=== PATIENT | male | born 1935 | race Hispanic/Latino ===

== ENCOUNTER 2020-05-03 10:58 | Inpatient (IN) | payer MEDICARE ==
[~2020-05-03] VITALS: Ht 172.7 cm; Wt 90.7 kg
[2020-05-03 11:45] LABS: BASOPHILS % (AUTO) 0.3 % (0.0-5.0); HEMATOCRIT 53.8 % (42-54); LYMPHOCYTES % (AUTO) 12.5 % (21.0-51.0); MEAN CORPUSCULAR HEMOGLOBIN 32.2 pg (27.0-33.0); MEAN CORPUSCULAR HGB CONC 34.8 g/dL (32.0-36.0); MEAN CORPUSCULAR VOLUME 92.6 fL (79-99); MONOCYTES % (AUTO) 4.6 % (3.0-13.0); NEUTROPHILS % (AUTO) 80.8 % (40.0-77.0); PLATELET COUNT (AUTO) 143 K/uL (130-400); RED BLOOD CELL COUNT(AUTO) 5.81 MIL/uL (4.50-6.20); RED CELL DISTRIBUTION WIDTH 13.2 % (11.0-15.5); WHITE BLOOD COUNT (AUTO) 3.3 K/uL (4.8-10.8)
[2020-05-03 11:55] LABS: CREATININE 1.1 mg/dL (0.5-1.5); POTASSIUM 4.1 mmol/L (3.5-5.1)
[2020-05-03 11:58] LABS: INR 0.91 (0.85-1.15); PROTHROMBIN TIME 9.9 SEC (9.6-11.6)
[2020-05-03 12:05] LABS: ALBUMIN 3.7 g/dL (3.5-5.0); BILIRUBIN,TOTAL 0.6 mg/dL (0.2-1.0); TOTAL PROTEIN, SERUM 7.9 g/dL (6.0-8.3)
[2020-05-03 12:56] LABS: ABG BASE EXCESS -5.5 mmol/L (-2.0-3.0); ABG HCO3 17.2 mmol/L (21.0-28.0); ABG OXYGEN SATURATION 88.8 % (95.0-99.0); ABG PCO2 27 mmHg (35-48)
[2020-05-03] MEDS ORDERED: CEFTRIAXONE SODIUM 1 GM ONE (14:23)
[2020-05-03] MEDS ORDERED: SODIUM CHLORIDE 0.9% 50 ML IV ONE (14:24)
[2020-05-03] MEDS ORDERED: ACETAMINOPHEN 325 MG TAB PO PRN (15:00)
[2020-05-03] MEDS ORDERED: ONDANSETRON HCL 4 MG/2 ML VIAL IV PRN (15:00)
[2020-05-03] MEDS ORDERED: LACTULOSE 20 GM/30 ML UDCUP PO PRN (15:00)
[2020-05-03] MEDS: CEFTRIAXONE SODIUM 1 GM IVP SCH (15:00)
[2020-05-03] MEDS ORDERED: DOXYCYCLINE 100MG+NS 250ML IV SCH (15:00)
[2020-05-03] MEDS ORDERED: ERGOCALCIFEROL (VITAMIN D2) 50,000 UNIT CAPSULE PO ONE (15:00)
[2020-05-03] MEDS ORDERED: HYDRALAZINE HCL 20 MG/ML VIAL IV PRN (15:45)
[2020-05-03] MEDS ORDERED: PHARMACY COMMUNICATION***REMDESIVIR ORDER MISC SCH (15:45)
[2020-05-03] MEDS ORDERED: ALBUTEROL INHALER 90MCG/INH IH PRN (15:45)
[2020-05-03] MEDS: DOXYCYCLINE 100MG+NS 250ML 250 ML IV SCH (16:00)
[2020-05-03] MEDS ORDERED: METHYLPREDNISOLONE SOD SUCC 40MG/ML 1ML IVP SCH (16:00)
[2020-05-03] MEDS ORDERED: METHYLPREDNISOLONE SOD SUCC 40MG/ML 1ML ONE (16:15)
[2020-05-03] MEDS ORDERED: DOXYCYCLINE HYCLATE 100 MG TABLET PO ONE (16:16)
[2020-05-03] MEDS ORDERED: ERGOCALCIFEROL (VITAMIN D2) 50,000 UNIT CAPSULE ONE (16:16)
[2020-05-03] MEDS ORDERED: DOXYCYCLINE 100MG+NS 250ML 250 ML IV ONE (16:20)
[2020-05-03] MEDS ORDERED: ALBUTEROL INHALER 90MCG/INH IH ONE (17:49)
[2020-05-03] MEDS ORDERED: FAMOTIDINE 20MG TAB 20 MG TAB ONE (20:26)
[2020-05-03] MEDS ORDERED: ASCORBIC ACID 500 MG TAB ONE (20:26)
[2020-05-03] MEDS ORDERED: ACETYLCYSTEINE 600 MG CAPSULE ONE (20:26)
[2020-05-03] MEDS ORDERED: ENOXAPARIN SODIUM 40 MG/0.4 ML SYRINGE SQ ONE (20:27)
[2020-05-03] MEDS ORDERED: ZINC SULFATE 220 CAPSULE ONE (20:27)
[2020-05-03] MEDS ORDERED: FAMOTIDINE 20MG TAB 20 MG TAB PO SCH (21:00)
[2020-05-03] MEDS: ACETYLCYSTEINE 600 MG CAPSULE PO SCH (21:00)
[2020-05-04] MEDS ORDERED: METHYLPREDNISOLONE SOD SUCC 40MG/ML 1ML ONE ×3 (00:30→15:59)
[2020-05-04] MEDS ORDERED: CEFTRIAXONE SODIUM 1 GM ONE ×2 (00:30→14:12)
[2020-05-04] MEDS: CEFTRIAXONE SODIUM 1 GM IVP SCH ×2 (03:00→15:00)
[2020-05-04] MEDS ORDERED: DOXYCYCLINE 100MG+NS 250ML 250 ML IV ONE ×2 (03:06→15:59)
[2020-05-04] MEDS: DOXYCYCLINE 100MG+NS 250ML 250 ML IV SCH ×2 (04:00→16:00)
[2020-05-04 04:25] LABS: CRP QUANTITATIVE 94.1 mg/L (0.00-9.0)
[2020-05-04] MEDS ORDERED: IOHEXOL 350 MG/ML 100ML INFUS..BTL IV ONE (08:38)
[2020-05-04 08:51] LABS: BASOPHILS % (AUTO) 0.2 % (0.0-5.0); HEMATOCRIT 50.8 % (42-54); LYMPHOCYTES % (AUTO) 4.2 % (21.0-51.0); MEAN CORPUSCULAR HGB CONC 34.3 g/dL (32.0-36.0); MEAN CORPUSCULAR VOLUME 93.6 fL (79-99); MONOCYTES % (AUTO) 4.8 % (3.0-13.0); NEUTROPHILS % (AUTO) 90.2 % (40.0-77.0); PLATELET COUNT (AUTO) 167 K/uL (130-400); RED BLOOD CELL COUNT(AUTO) 5.43 MIL/uL (4.50-6.20); RED CELL DISTRIBUTION WIDTH 13.2 % (11.0-15.5); WHITE BLOOD COUNT (AUTO) 6.6 K/uL (4.8-10.8)
[2020-05-04] MEDS: ASCORBIC ACID 500 MG TAB PO SCH (09:00)
[2020-05-04] MEDS: ENOXAPARIN SODIUM 40 MG/0.4 ML SYRINGE SQ SCH (09:00)
[2020-05-04] MEDS: ZINC SULFATE 220 CAPSULE PO SCH (09:00)
[2020-05-04] MEDS: ACETYLCYSTEINE 600 MG CAPSULE PO SCH ×2 (09:00→21:00)
[2020-05-04] MEDS ORDERED: FAMOTIDINE 20MG TAB 20 MG TAB ONE ×2 (09:26→20:41)
[2020-05-04] MEDS ORDERED: ACETYLCYSTEINE 600 MG CAPSULE ONE ×2 (09:27→20:41)
[2020-05-04 09:28] LABS: ALBUMIN 3.2 g/dL (3.5-5.0); BILIRUBIN,TOTAL 0.4 mg/dL (0.2-1.0); CREATININE 0.8 mg/dL (0.5-1.5); POTASSIUM 3.4 mmol/L (3.5-5.1); TOTAL PROTEIN, SERUM 7.4 g/dL (6.0-8.3)
[2020-05-04 13:35] LABS: ABG BASE EXCESS -5.3 mmol/L (-2.0-3.0); ABG HCO3 17.2 mmol/L (21.0-28.0); ABG PCO2 27 mmHg (35-48)
[2020-05-04 13:47] LABS: ABG OXYGEN SATURATION 84.6 % (95.0-99.0)
[2020-05-04] MEDS ORDERED: SODIUM CHLORIDE 0.9% 50 ML IV ONE (14:13)
--- NOTE | 2020-05-04 15:57 | NUR ---
IA- CALL TO BROTHER FOR DC PLANNING KRISTINA PAULSON IS BROTHER, [facility] DOES NOT KNOW PATIENTS PHYSICAL ADDRESS, BUT THAT YES PATIENT LIVES IN [place] , IN AN APARTMENT, BY HIMSELF. STATES PATIENT IS INDEPENDENT AND FAR HE KNOWS LIVE SNOT USE A CANE A WALKER OR A WHEELCHAIR. STATES THE PATIENT HAS PROVIDER SERVICES, BUT DOES NOT KNOW HOW MANY HOURS- STATES THE PATIENT'S SON ALIZE PAULSON JR AND DAUGHTER ARACELI PAULSON LIVE 'VERY FAR AWAY UP [place]' [facility] DOES NOT KNOW THEIR NUMBERS, BUT THAT PT COMMUNICATES REGULARLY WITH THEM AND HAS THEIR NUMBER ON HIS PHONE. CALL TO ER NURSE TO ASK HER TO RECORD THE DAUGHTERS OR SON'S NUMBER IN THE SYSTEM. DOCUMENTATION SHOWS THAT PATIENT HAS BEEN IN CONTACT WITH HIS DAUGHTER. WILL AWAIT FAMILY NUMBERS FOR DISCHARGE PLANNING. PATIENT IS ON 60 L HIGH FLOW AT THIS TIME Addendum: 05/04/20 at 1605 by KERRI DARBY RN Amended: Links added.
[2020-05-04] MEDS ORDERED: ASCORBIC ACID 500 MG TAB ONE (20:40)
[2020-05-04] MEDS ORDERED: ENOXAPARIN SODIUM 40 MG/0.4 ML SYRINGE SQ ONE (20:41)
[2020-05-04] MEDS ORDERED: ZINC SULFATE 220 CAPSULE ONE (20:41)
[2020-05-05 02:54] LABS: ABG BASE EXCESS -7.2 mmol/L (-2.0-3.0); ABG HCO3 17.7 mmol/L (21.0-28.0); ABG OXYGEN SATURATION 85.3 % (95.0-99.0); ABG PCO2 34 mmHg (35-48)
[2020-05-05] MEDS: CEFTRIAXONE SODIUM 1 GM IVP SCH ×2 (03:00→15:00)
[2020-05-05] MEDS ORDERED: DOXYCYCLINE 100MG+NS 250ML 250 ML IV ONE (03:39)
[2020-05-05] MEDS ORDERED: CEFTRIAXONE SODIUM 1 GM ONE ×2 (03:39→14:52)
[2020-05-05] MEDS: DOXYCYCLINE 100MG+NS 250ML 250 ML IV SCH ×2 (04:00→16:00)
[2020-05-05 04:23] LABS: APPEARANCE,URINE Clear (CLEAR); BILIRUBIN,URINE Negative (NEGATIVE); COLOR,URINE Yellow (YELLOW); GLUCOSE, URINE (UA) Negative (NEGATIVE); KETONES,URINE 15 mg/dL (NEGATIVE); LEUKOCYTE ESTERASE ,URINE Negative (NEGATIVE); NITRATE,URINE Negative (NEGATIVE); OCCULT BLOOD,URINE Negative (NEGATIVE); PH,URINE 5.5 (5.0-8.0); PROTEIN,URINE POS 2+ mg/dL (NEGATIVE)
[2020-05-05 07:03] LABS: ABG HCO3 20.5 mmol/L (21.0-28.0); ABG OXYGEN SATURATION 84.2 % (95.0-99.0); ABG PCO2 36 mmHg (35-48)
[2020-05-05] MEDS ORDERED: METHYLPREDNISOLONE SOD SUCC 40MG/ML 1ML ONE ×2 (08:15→15:24)
[2020-05-05] MEDS ORDERED: HYDRALAZINE HCL 20 MG/ML VIAL ONE (08:51)
[2020-05-05] MEDS: ENOXAPARIN SODIUM 40 MG/0.4 ML SYRINGE SQ SCH (09:00)
[2020-05-05] MEDS: FUROSEMIDE 10 MG/ML 4ML VIAL IV SCH (09:00)
[2020-05-05] MEDS: ASCORBIC ACID 500 MG TAB PO SCH (09:00)
[2020-05-05] MEDS: ZINC SULFATE 220 CAPSULE PO SCH (09:00)
[2020-05-05] MEDS ORDERED: GUAIFENESIN-DM 200/20 MG 10 ML PO PRN (09:00)
[2020-05-05] MEDS: ACETYLCYSTEINE 600 MG CAPSULE PO SCH ×2 (09:00→21:00)
[2020-05-05 09:03] LABS: CRP QUANTITATIVE 33.4 mg/L (0.00-9.0)
[2020-05-05] MEDS ORDERED: FUROSEMIDE 10 MG/ML 4ML VIAL ONE (09:05)
[2020-05-05] MEDS ORDERED: PROPOFOL 1000 MG/100 ML 100 ML IV ONE ×3 (10:08→23:54)
[2020-05-05 11:43] LABS: ABG BASE EXCESS -9.7 mmol/L (-2.0-3.0); ABG HCO3 21.4 mmol/L (21.0-28.0); ABG OXYGEN SATURATION 84.3 % (95.0-99.0); ABG PCO2 72 mmHg (35-48)
[2020-05-05 13:00] LABS: ABG BASE EXCESS -9.5 mmol/L (-2.0-3.0); ABG HCO3 19.4 mmol/L (21.0-28.0); ABG PCO2 54 mmHg (35-48)
[2020-05-05] MEDS ORDERED: SODIUM BICARB 50MEQ 50ML VIAL ONE (13:09)
[2020-05-05] MEDS ORDERED: FENTANYL 2500MCG+NS 250ML 250 ML IV SCH (13:30)
[2020-05-05] MEDS ORDERED: NOREPINEPHRINE BITARTRATE 8 MG/NS 250ML IV SCH ×2 (14:30)
[2020-05-05] MEDS ORDERED: FENTANYL 2500MCG+NS 250ML 250 ML IV ONE (15:37)
[2020-05-05 16:32] LABS: ABG BASE EXCESS -4.4 mmol/L (-2.0-3.0); ABG HCO3 24.5 mmol/L (21.0-28.0); ABG OXYGEN SATURATION 76.7 % (95.0-99.0); ABG PCO2 62 mmHg (35-48)
[2020-05-05] MEDS: METHYLPREDNISOLONE SOD SUCC 125MG/2ML VIAL IVP SCH ×2 (17:45→23:45)
[2020-05-05] MEDS ORDERED: METHYLPREDNISOLONE SOD SUCC 125MG/2ML VIAL ONE (22:01)
[2020-05-05] MEDS ORDERED: FAMOTIDINE/PF 20 MG/2 ML VIAL IV ONE (22:01)
[2020-05-06] VITALS (80 sets, daily range): BP systolic 66–132; BP diastolic 43–78
[2020-05-06] MEDS ORDERED: METHYLPREDNISOLONE SOD SUCC 125MG/2ML VIAL ONE ×3 (03:29→19:51)
[2020-05-06] MEDS: DOXYCYCLINE 100MG+NS 250ML 250 ML IV SCH ×2 (04:00→16:00)
[2020-05-06] MEDS: CEFTRIAXONE SODIUM 1 GM IVP SCH ×2 (04:48→17:00)
[2020-05-06] MEDS: METHYLPREDNISOLONE SOD SUCC 125MG/2ML VIAL IVP SCH ×4 (04:48→21:45)
[2020-05-06 04:54] LABS: BASOPHILS % (AUTO) 0.3 % (0.0-5.0); HEMATOCRIT 53.1 % (42-54); LYMPHOCYTES % (AUTO) 2.1 % (21.0-51.0); MEAN CORPUSCULAR HEMOGLOBIN 31.8 pg (27.0-33.0); MEAN CORPUSCULAR HGB CONC 33.1 g/dL (32.0-36.0); MEAN CORPUSCULAR VOLUME 95.8 fL (79-99); MONOCYTES % (AUTO) 8.7 % (3.0-13.0); NEUTROPHILS % (AUTO) 86.4 % (40.0-77.0); PLATELET COUNT (AUTO) 228 K/uL (130-400); RED BLOOD CELL COUNT(AUTO) 5.54 MIL/uL (4.50-6.20); RED CELL DISTRIBUTION WIDTH 14.1 % (11.0-15.5); WHITE BLOOD COUNT (AUTO) 21.6 K/uL (4.8-10.8)
[2020-05-06 05:16] LABS: CREATININE 2.2 mg/dL (0.5-1.5); CRP QUANTITATIVE 55.8 mg/L (0.00-9.0)
[2020-05-06] MEDS ORDERED: NOREPINEPHRINE 4MG/NS 250ML 250 ML IV ONE (06:48)
[2020-05-06] MEDS: ENOXAPARIN SODIUM 40 MG/0.4 ML SYRINGE SQ SCH (08:40)
[2020-05-06] MEDS: ACETYLCYSTEINE 600 MG CAPSULE PO SCH ×2 (08:40→21:44)
[2020-05-06] MEDS: ASCORBIC ACID 500 MG TAB PO SCH (08:40)
[2020-05-06] MEDS: ZINC SULFATE 220 CAPSULE PO SCH (08:41)
[2020-05-06] MEDS: FUROSEMIDE 10 MG/ML 4ML VIAL IV SCH (08:41)
[2020-05-06 08:59] LABS: ABG BASE EXCESS -6.6 mmol/L (-2.0-3.0); ABG HCO3 21.5 mmol/L (21.0-28.0); ABG OXYGEN SATURATION 94.6 % (95.0-99.0); ABG PCO2 53 mmHg (35-48)
[2020-05-06] MEDS ORDERED: PANTOPRAZOLE 40 MG/VIAL IVP SCH (09:00)
[2020-05-06] MEDS ORDERED: PHARMACY COMMUNICATION MISC SCH ×2 (09:15→11:15)
[2020-05-06] MEDS: PHARMACY COMMUNICATION***REMDESIVIR ORDER MISC SCH ×2 (09:30→17:30)
[2020-05-06] MEDS ORDERED: NOREPINEPHRINE BITARTRATE 32 MG in SODIUM CHLORIDE 0.9% 250 ML IV SCH (11:30)
[2020-05-06] MEDS: FAMOTIDINE/PF 20 MG/2 ML VIAL IV SCH (13:36)
[2020-05-06 14:08] LABS: ABG BASE EXCESS -5.9 mmol/L (-2.0-3.0); ABG OXYGEN SATURATION 93.4 % (95.0-99.0); ABG PCO2 53 mmHg (35-48)
--- NOTE | 2020-05-06 15:31 | NUR ---
RD NOTIFICATION - TUBE FEEDING RECOMMENDATIONS Pt intubated and sedated. Propofol D/C'd per EMR. Recommend Continuous Vital High Protein initiated at 15mls/hr. Goal rate of 40mls/hr. Recommend Flushes at 100ml Q6hrs Recommendations faxed to [facility] RN notified. Nutrition Note: Pt Hx of HTN, GERD, COPD. Vented and Sedated. Positive COVID. OGT placed 05/05. WBC 21.6, BUN 51, Cr 2.2, GFR 31, BG 232. RD to continue to monitor. Please notify RD as additional nutrition concerns arise. Thank you.
[2020-05-06] MEDS ORDERED: PROPOFOL 1000 MG/100 ML 100 ML IV ONE (15:52)
[2020-05-06] MEDS: MIDAZOLAM 50MG-0.9% NS 50ML 50 ML IV SCH (17:34)
[2020-05-06] MEDS: ENOXAPARIN SODIUM 100 MG/1 ML SQ SCH (18:50)
[2020-05-07] VITALS (126 sets, daily range): BP systolic 97–148; BP diastolic 43–85
[2020-05-07] MEDS: PHARMACY COMMUNICATION***REMDESIVIR ORDER MISC SCH ×4 (01:30→23:32)
[2020-05-07] MEDS: CEFTRIAXONE SODIUM 1 GM IVP SCH (03:00)
[2020-05-07] MEDS ORDERED: PROPOFOL 1000 MG/100 ML 100 ML IV ONE ×2 (03:15→16:32)
[2020-05-07] MEDS: DOXYCYCLINE 100MG+NS 250ML 250 ML IV SCH ×2 (04:00→17:18)
[2020-05-07 04:38] LABS: HEMATOCRIT 52.9 % (42-54); MEAN CORPUSCULAR HEMOGLOBIN 31.4 pg (27.0-33.0); MEAN CORPUSCULAR HGB CONC 32.7 g/dL (32.0-36.0); NUCLEATED RED BLOOD CELLS 0.2 % (0.0-0.19); PLATELET COUNT (AUTO) 162 K/uL (130-400); RED BLOOD CELL COUNT(AUTO) 5.51 MIL/uL (4.50-6.20); WHITE BLOOD COUNT (AUTO) 16.2 K/uL (4.8-10.8)
[2020-05-07 05:07] LABS: BAND NEUTROPHILS % (MANUAL) 1 % (0-2); LYMPHOCYTES % (MANUAL) 2 % (22-44); MAN.DIFF COMMENT-IMPRESSION MANUAL DIFFERENTIAL; MONOCYTES % (MANUAL) 6 % (2-9); PLATELET MORPHOLOGY COMMENT ADEQUATE; SEGMENTED NEUTROPHILS % 91 % (40-70)
[2020-05-07 05:14] LABS: BILIRUBIN,TOTAL 0.7 mg/dL (0.2-1.0); CREATININE 2.7 mg/dL (0.5-1.5); CRP QUANTITATIVE 52.4 mg/L (0.00-9.0); POTASSIUM 4.2 mmol/L (3.5-5.1); TOTAL PROTEIN, SERUM 6.6 g/dL (6.0-8.3)
[2020-05-07] MEDS: METHYLPREDNISOLONE SOD SUCC 125MG/2ML VIAL IVP SCH ×3 (06:18→16:59)
[2020-05-07] MEDS: INSULIN HUMULIN R 100 UNIT/ML 3ML SQ SCH ×4 (06:19→17:10)
[2020-05-07] MEDS: FAMOTIDINE/PF 20 MG/2 ML VIAL IV SCH (08:07)
[2020-05-07] MEDS: ZINC SULFATE 220 CAPSULE PO SCH (08:07)
[2020-05-07] MEDS: ACETYLCYSTEINE 600 MG CAPSULE PO SCH ×2 (08:07→20:34)
[2020-05-07] MEDS: ASCORBIC ACID 500 MG TAB PO SCH (08:07)
[2020-05-07] MEDS: MIDAZOLAM 50MG-0.9% NS 50ML 50 ML IV SCH ×2 (08:15→17:11)
[2020-05-07] MEDS: DEXTROSE 5%-WATER 1,000 ML IV SCH ×2 (08:45→22:05)
[2020-05-07 08:56] LABS: ABG HCO3 22.9 mmol/L (21.0-28.0); ABG OXYGEN SATURATION 95.3 % (95.0-99.0); ABG PCO2 69 mmHg (35-48)
[2020-05-07] MEDS ORDERED: ENOXAPARIN SODIUM 1 MG/KG SQ SCH (09:00)
[2020-05-07] MEDS: FUROSEMIDE 10 MG/ML 4ML VIAL IV SCH (09:00)
[2020-05-07] MEDS ORDERED: ENOXAPARIN SODIUM 100 MG/1 ML SQ SCH (09:00)
[2020-05-07] MEDS ORDERED: LACTATED RINGERS 1000ML IV ONE (09:24)
[2020-05-07] MEDS ORDERED: SODIUM BICARB 50MEQ 50ML VIAL ONE (09:29)
[2020-05-07] MEDS ORDERED: LACTATED RINGERS 1000ML IV SCH (09:30)
[2020-05-07] MEDS ORDERED: SODIUM BICARB 50MEQ 50ML VIAL IV SCH (09:30)
[2020-05-07] MEDS: LACTATED RINGERS 1000ML 1,000 ML IV SCH ×2 (09:32→12:32)
[2020-05-07] MEDS ORDERED: LACTATED RINGERS 1000ML 500 ML IV SCH (09:45)
[2020-05-07 11:07] LABS: ABG BASE EXCESS -0.5 mmol/L (-2.0-3.0); ABG OXYGEN SATURATION 97.2 % (95.0-99.0); ABG PCO2 63 mmHg (35-48)
[2020-05-07] MEDS: ACETAMINOPHEN 325 MG TAB PO PRN ×3 (12:34→20:34)
[2020-05-07] MEDS: ZOSYN 3.375GM+NS 50ML 50 ML IV SCH ×2 (12:35→20:34)
[2020-05-07] MEDS ORDERED: SODIUM CHLORIDE 0.9% 250 ML IV ONE (14:21)
[2020-05-07] MEDS: ENOXAPARIN SODIUM 100 MG/1 ML SQ SCH (17:00)
[2020-05-07 23:20] LABS: ABG BASE EXCESS -1.6 mmol/L (-2.0-3.0); ABG OXYGEN SATURATION 92.5 % (95.0-99.0); ABG PCO2 62 mmHg (35-48)
[2020-05-07] MEDS ORDERED: METHYLPREDNISOLONE SOD SUCC 125MG/2ML VIAL ONE (23:36)
[2020-05-08] VITALS (49 sets, daily range): BP systolic 94–131; BP diastolic 52–75
[2020-05-08] MEDS: LACTATED RINGERS 1000ML 1,000 ML IV SCH ×2 (00:45→08:35)
[2020-05-08] MEDS: INSULIN HUMULIN R 100 UNIT/ML 3ML SQ SCH ×4 (01:31→17:58)
[2020-05-08] MEDS: METHYLPREDNISOLONE SOD SUCC 125MG/2ML VIAL IVP SCH ×2 (01:31→06:33)
[2020-05-08] MEDS: DOXYCYCLINE 100MG+NS 250ML 250 ML IV SCH ×2 (04:05→15:43)
[2020-05-08 04:56] LABS: BASOPHILS % (AUTO) 0.2 % (0.0-5.0); HEMATOCRIT 50.7 % (42-54); LYMPHOCYTES % (AUTO) 1.5 % (21.0-51.0); MEAN CORPUSCULAR HEMOGLOBIN 31.6 pg (27.0-33.0); MEAN CORPUSCULAR HGB CONC 32.7 g/dL (32.0-36.0); MEAN CORPUSCULAR VOLUME 96.6 fL (79-99); MONOCYTES % (AUTO) 6.2 % (3.0-13.0); NEUTROPHILS % (AUTO) 90.7 % (40.0-77.0); NUCLEATED RED BLOOD CELLS 0.3 % (0.0-0.19); PLATELET COUNT (AUTO) 147 K/uL (130-400); RED BLOOD CELL COUNT(AUTO) 5.25 MIL/uL (4.50-6.20); WHITE BLOOD COUNT (AUTO) 12.7 K/uL (4.8-10.8)
[2020-05-08 05:39] LABS: ALBUMIN 2.8 g/dL (3.5-5.0); BILIRUBIN,TOTAL 0.7 mg/dL (0.2-1.0); CREATININE 2.7 mg/dL (0.5-1.5); CRP QUANTITATIVE 23.1 mg/L (0.00-9.0); POTASSIUM 3.8 mmol/L (3.5-5.1); TOTAL PROTEIN, SERUM 6.5 g/dL (6.0-8.3)
[2020-05-08] MEDS ORDERED: METHYLPREDNISOLONE SOD SUCC 125MG/2ML VIAL ONE (06:35)
--- NOTE | 2020-05-08 07:15 | NUR ---
NG TUBE REMOVED AND OG TUBE PLACED IN CORRECT PLACEMENT. AIR BOLUS AND ASPIRATE VERIFIED.
[2020-05-08 07:29] LABS: ABG BASE EXCESS -2.3 mmol/L (-2.0-3.0); ABG HCO3 25.3 mmol/L (21.0-28.0); ABG PCO2 55 mmHg (35-48)
[2020-05-08] MEDS: FAMOTIDINE/PF 20 MG/2 ML VIAL IV SCH (08:35)
[2020-05-08] MEDS: ZOSYN 3.375GM+NS 50ML 50 ML IV SCH ×2 (08:35→20:16)
[2020-05-08] MEDS: ASCORBIC ACID 500 MG TAB PO SCH (08:36)
[2020-05-08] MEDS: ACETYLCYSTEINE 600 MG CAPSULE PO SCH ×2 (08:36→20:16)
[2020-05-08] MEDS: ZINC SULFATE 220 CAPSULE PO SCH (08:36)
--- NOTE | 2020-05-08 08:55 | NUR ---
RE: CHEST X-RAY FEEDING TUBE IN THE LUNG REPORTED BY DR Deirdre BURNETT. Yael GARCIA RN NOTIFIED WITH RESULTS.
[2020-05-08] MEDS: DEXTROSE 5%-WATER 1,000 ML IV SCH ×2 (09:00→17:32)
[2020-05-08] MEDS: FUROSEMIDE 10 MG/ML 4ML VIAL IV SCH (09:00)
[2020-05-08] MEDS ORDERED: METHYLPREDNISOLONE SOD SUCC 125MG/2ML VIAL IVP SCH ×3 (09:00→14:00)
[2020-05-08] MEDS: PHARMACY COMMUNICATION***REMDESIVIR ORDER MISC SCH ×2 (09:30→13:47)
[2020-05-08] MEDS: LINEZOLID 600 MG/ISO-OSM 300 ML IV SCH ×2 (09:47→20:16)
--- NOTE | 2020-05-08 11:00 | NUR ---
DR. LAURA SAW PT'S CXR. PUSH ETT 2CM. DONE BY RT.
--- NOTE | 2020-05-08 12:00 | NUR ---
FAMILY CALLED AND INFORMED OF PT CONDITION. INFORMATION GIVEN TO DAUGHTER LIO PAULSON.
[2020-05-08] MEDS ORDERED: DOCUSATE SODIUM 100 MG CAP PO PRN (12:15)
[2020-05-08] MEDS: PHARMACY COMMUNICATION MISC SCH ×2 (13:15→14:01)
[2020-05-08] MEDS ORDERED: MIDAZOLAM 100MG-0.9% NS 100ML 100ML BAG IV ONE (14:45)
--- NOTE | 2020-05-08 15:00 | NUR ---
PRONE AT 1500. PER DR. LAURA PRONE 16 HOURS/SUPINE 8 HOURS.
[2020-05-08] MEDS ORDERED: MIDAZOLAM 100MG-0.9% NS 100ML 100 ML IV SCH (15:15)
[2020-05-08 16:51] LABS: CREATININE 2.8 mg/dL (0.5-1.5); POTASSIUM 4.3 mmol/L (3.5-5.1)
[2020-05-08] MEDS: ENOXAPARIN SODIUM 100 MG/1 ML SQ SCH (17:32)
[2020-05-08] MEDS ORDERED: PHARMACY COMMUNICATION MISC SCH (18:30)
[2020-05-08] MEDS ORDERED: DEXTROSE 5% IV SCH ×4 (18:45)
[2020-05-08] MEDS ORDERED: WATER IV SCH ×4 (18:45)
[2020-05-08] MEDS ORDERED: MIDAZOLAM HCL IV SCH ×4 (18:45)
[2020-05-08] MEDS ORDERED: COMPOUND NARC IV MISC 1 EACH IVSOLN MISC PRN (19:00)
[2020-05-08 22:22] LABS: CREATININE 2.6 mg/dL (0.5-1.5); POTASSIUM 3.8 mmol/L (3.5-5.1)
[2020-05-09] VITALS (17 sets, daily range): BP systolic 111–132; BP diastolic 57–75
[2020-05-09] MEDS: INSULIN HUMULIN R 100 UNIT/ML 3ML SQ SCH ×4 (00:13→17:39)
[2020-05-09] MEDS: PHARMACY COMMUNICATION***REMDESIVIR ORDER MISC SCH ×3 (00:14→16:42)
[2020-05-09] MEDS: DEXTROSE 5%-WATER 1,000 ML IV SCH ×3 (00:14→09:31)
[2020-05-09] MEDS: DOXYCYCLINE 100MG+NS 250ML 250 ML IV SCH ×2 (03:16→15:27)
[2020-05-09 05:28] LABS: BASOPHILS % (AUTO) 0.1 % (0.0-5.0); HEMATOCRIT 50.2 % (42-54); LYMPHOCYTES % (AUTO) 1.2 % (21.0-51.0); MEAN CORPUSCULAR HEMOGLOBIN 31.8 pg (27.0-33.0); MEAN CORPUSCULAR HGB CONC 32.3 g/dL (32.0-36.0); MEAN CORPUSCULAR VOLUME 98.6 fL (79-99); MONOCYTES % (AUTO) 5.9 % (3.0-13.0); NEUTROPHILS % (AUTO) 91.1 % (40.0-77.0); NUCLEATED RED BLOOD CELLS 0.3 % (0.0-0.19); PLATELET COUNT (AUTO) 116 K/uL (130-400); RED BLOOD CELL COUNT(AUTO) 5.09 MIL/uL (4.50-6.20); WHITE BLOOD COUNT (AUTO) 13.1 K/uL (4.8-10.8)
[2020-05-09 05:55] LABS: ALBUMIN 2.5 g/dL (3.5-5.0); BILIRUBIN,TOTAL 0.5 mg/dL (0.2-1.0); CREATININE 2.6 mg/dL (0.5-1.5); CRP QUANTITATIVE 18.7 mg/L (0.00-9.0); POTASSIUM 3.9 mmol/L (3.5-5.1)
[2020-05-09 07:31] LABS: ABG BASE EXCESS -1.6 mmol/L (-2.0-3.0); ABG HCO3 27.9 mmol/L (21.0-28.0); ABG OXYGEN SATURATION 88.2 % (95.0-99.0); ABG PCO2 69 mmHg (35-48)
[2020-05-09] MEDS: ASCORBIC ACID 500 MG TAB PO SCH (07:56)
[2020-05-09] MEDS: ACETYLCYSTEINE 600 MG CAPSULE PO SCH ×2 (07:56→19:57)
[2020-05-09] MEDS: LINEZOLID 600 MG/ISO-OSM 300 ML IV SCH ×2 (07:56→19:57)
[2020-05-09] MEDS: ZINC SULFATE 220 CAPSULE PO SCH (07:56)
[2020-05-09] MEDS: ZOSYN 3.375GM+NS 50ML 50 ML IV SCH ×2 (08:01→19:57)
[2020-05-09] MEDS: FUROSEMIDE 10 MG/ML 4ML VIAL IV SCH (08:01)
[2020-05-09] MEDS: DEXAMETHASONE SOD PHOSPHATE 4 MG/ML 1ML VIAL IVP SCH (09:44)
[2020-05-09] MEDS: FAMOTIDINE/PF 20 MG/2 ML VIAL IV SCH (09:44)
--- NOTE | 2020-05-09 11:50 | NUR ---
PUPIL REFLEX UNABLE TO ASSESS, PT PRONE. Addendum: 05/09/20 at 1151 by NASEEM PADRON RN RN Amended: Links added.
[2020-05-09] MEDS ORDERED: FENTANYL 2500MCG+NS 250ML 0 ML IV ONE (13:06)
[2020-05-09] MEDS: FENTANYL CITRATE PF 0.05 MG/ML 2,500 MCG in DEXTROSE 5%-WATER 250 ML IVPB SCH (13:20)
--- NOTE | 2020-05-09 14:51 | NUR ---
RD FOLLOW UP Pt with Glucerna 1.[address] Dehydration. Increased free water flushes. WBC 13.1, Na 153, BUN 101, Cr 2.6, GFR 25, BG 263, LDH 311, CRP 18.7, Alb 2.5. Recommend Vital HP formula for immune support, low CHO, protein to meet patient needs and prevent wasting. Recs placed 05/06. Recommend continue increased flushes. RD to continue to monitor. Please notify as additional nutrition concerns arise. Thank you.
[2020-05-09] MEDS: MIDAZOLAM HCL IV SCH (15:32)
[2020-05-09] MEDS: WATER IV SCH (15:32)
[2020-05-09] MEDS: DEXTROSE 5% IV SCH (15:32)
[2020-05-09] MEDS: ENOXAPARIN SODIUM 100 MG/1 ML SQ SCH (17:08)
[2020-05-10] VITALS (30 sets, daily range): BP systolic 85–125; BP diastolic 47–70
[2020-05-10] MEDS: INSULIN HUMULIN R 100 UNIT/ML 3ML SQ SCH ×4 (00:05→17:39)
[2020-05-10] MEDS: PHARMACY COMMUNICATION***REMDESIVIR ORDER MISC SCH ×2 (00:06→09:30)
[2020-05-10] MEDS: DEXTROSE 5%-WATER 1,000 ML IV SCH (00:06)
[2020-05-10] MEDS: DOXYCYCLINE 100MG+NS 250ML 250 ML IV SCH (05:08)
[2020-05-10 06:33] LABS: HEMATOCRIT 54.3 % (42-54); MEAN CORPUSCULAR HEMOGLOBIN 31.7 pg (27.0-33.0); MEAN CORPUSCULAR HGB CONC 31.7 g/dL (32.0-36.0); NUCLEATED RED BLOOD CELLS 0.3 % (0.0-0.19); PLATELET COUNT (AUTO) 142 K/uL (130-400); RED BLOOD CELL COUNT(AUTO) 5.43 MIL/uL (4.50-6.20); RED CELL DISTRIBUTION WIDTH 13.9 % (11.0-15.5); WHITE BLOOD COUNT (AUTO) 23.3 K/uL (4.8-10.8)
[2020-05-10 06:49] LABS: ALBUMIN 2.4 g/dL (3.5-5.0); BILIRUBIN,TOTAL 0.7 mg/dL (0.2-1.0); CREATININE 2.8 mg/dL (0.5-1.5); CRP QUANTITATIVE 15.4 mg/L (0.00-9.0); POTASSIUM 4.9 mmol/L (3.5-5.1); TOTAL PROTEIN, SERUM 6.1 g/dL (6.0-8.3)
[2020-05-10 06:55] LABS: PROTHROMBIN TIME 10.8 SEC (9.6-11.6)
[2020-05-10 07:45] LABS: LYMPHOCYTES % (MANUAL) 2 % (22-44); MAN.DIFF COMMENT-IMPRESSION MANUAL DIFFERENTIAL; MONOCYTES % (MANUAL) 10 % (2-9); PLATELET MORPHOLOGY COMMENT ADEQUATE; SEGMENTED NEUTROPHILS % 88 % (40-70)
[2020-05-10] MEDS: FUROSEMIDE 10 MG/ML 4ML VIAL IV SCH (09:00)
[2020-05-10 09:20] LABS: ABG BASE EXCESS -2.9 mmol/L (-2.0-3.0); ABG OXYGEN SATURATION 86.8 % (95.0-99.0); ABG PCO2 93 mmHg (35-48)
[2020-05-10] MEDS: ZOSYN 3.375GM+NS 50ML 50 ML IV SCH (10:15)
[2020-05-10] MEDS: LINEZOLID 600 MG/ISO-OSM 300 ML IV SCH ×2 (10:15→20:16)
[2020-05-10] MEDS: ACETYLCYSTEINE 600 MG CAPSULE PO SCH ×2 (10:17→20:16)
[2020-05-10] MEDS: ASCORBIC ACID 500 MG TAB PO SCH (10:17)
[2020-05-10] MEDS: ZINC SULFATE 220 CAPSULE PO SCH (10:17)
[2020-05-10] MEDS: DEXAMETHASONE SOD PHOSPHATE 4 MG/ML 1ML VIAL IVP SCH (10:17)
[2020-05-10] MEDS: FAMOTIDINE/PF 20 MG/2 ML VIAL IV SCH (10:17)
[2020-05-10] MEDS ORDERED: FUROSEMIDE 10 MG/ML 2ML VIAL IV SCH (10:30)
[2020-05-10] MEDS ORDERED: DOXYCYCLINE HYCLATE 100 MG TABLET PO SCH (12:42)
[2020-05-10] MEDS: MEROPENEM 1 GM VIAL IVP SCH (13:42)
--- NOTE | 2020-05-10 15:57 | NUR ---
Pt is in prone position. RT and RNs are at the bedside. Pt was turned on the side, while getting the bath, CHG, mouth,rafi and Humphrey care, central line dressing change. BP dropped but returned to normal within 15 min. VS stable. Pt remaining in prone position per MD. Continue to monitor Nephrology came by, stated "There will be no Dialysis for this patient" Family called and updated
[2020-05-10] MEDS: ENOXAPARIN SODIUM 100 MG/1 ML SQ SCH (17:40)
[2020-05-10] MEDS: DOXYCYCLINE HYCLATE 100 MG TABLET PO SCH (20:16)
[2020-05-10] MEDS: WATER IV SCH (20:17)
[2020-05-10] MEDS: DEXTROSE 5% IV SCH (20:17)
[2020-05-10] MEDS: MIDAZOLAM HCL IV SCH (20:17)
[2020-05-10] MEDS: FENTANYL CITRATE PF 0.05 MG/ML 2,500 MCG in DEXTROSE 5%-WATER 250 ML IVPB SCH (20:18)
[2020-05-11] VITALS (30 sets, daily range): BP systolic 77–143; BP diastolic 41–106
[2020-05-11] MEDS: INSULIN HUMULIN R 100 UNIT/ML 3ML SQ SCH ×2 (00:10→06:30)
[2020-05-11] MEDS: MEROPENEM 1 GM VIAL IVP SCH (00:11)
[2020-05-11 05:43] LABS: HEMATOCRIT 55.4 % (42-54); MEAN CORPUSCULAR HEMOGLOBIN 31.4 pg (27.0-33.0); MEAN CORPUSCULAR HGB CONC 30.5 g/dL (32.0-36.0); MEAN CORPUSCULAR VOLUME 102.8 fL (79-99); NUCLEATED RED BLOOD CELLS 1.6 % (0.0-0.19); PLATELET COUNT (AUTO) 163 K/uL (130-400); RED BLOOD CELL COUNT(AUTO) 5.39 MIL/uL (4.50-6.20); RED CELL DISTRIBUTION WIDTH 13.8 % (11.0-15.5)
[2020-05-11 05:57] LABS: WHITE BLOOD COUNT (AUTO) 37.2 K/uL (4.8-10.8)
[2020-05-11 07:02] LABS: ALBUMIN 2.2 g/dL (3.5-5.0); BILIRUBIN,TOTAL 1.3 mg/dL (0.2-1.0); CREATININE 4.7 mg/dL (0.5-1.5); POTASSIUM 5.5 mmol/L (3.5-5.1); TOTAL PROTEIN, SERUM 5.7 g/dL (6.0-8.3)
[2020-05-11 07:47] LABS: BAND NEUTROPHILS % (MANUAL) 6 % (0-2); BASOPHILS % (MANUAL) 1 % (0-2); LYMPHOCYTES % (MANUAL) 3 % (22-44); MAN.DIFF COMMENT-IMPRESSION MANUAL DIFFERENTIAL; MONOCYTES % (MANUAL) 11 % (2-9); PLATELET MORPHOLOGY COMMENT ADEQUATE; SEGMENTED NEUTROPHILS % 79 % (40-70)
[2020-05-11] MEDS: ZINC SULFATE 220 CAPSULE PO SCH (08:17)
[2020-05-11] MEDS: DEXAMETHASONE SOD PHOSPHATE 4 MG/ML 1ML VIAL IVP SCH (08:17)
[2020-05-11] MEDS: ASCORBIC ACID 500 MG TAB PO SCH (08:18)
[2020-05-11] MEDS: DOXYCYCLINE HYCLATE 100 MG TABLET PO SCH (08:18)
[2020-05-11] MEDS: ACETYLCYSTEINE 600 MG CAPSULE PO SCH (08:18)
[2020-05-11] MEDS: LINEZOLID 600 MG/ISO-OSM 300 ML IV SCH (08:20)
[2020-05-11] MEDS ORDERED: DEXTROSE 5%-WATER 1,000 ML IV ONE (08:53)
[2020-05-11] MEDS: FAMOTIDINE/PF 20 MG/2 ML VIAL IV SCH (09:56)
--- NOTE | 2020-05-11 09:56 | NUR ---
D5 500 ML BAG WAS SCANNED INTEAD OF THE 1000ML DUE TO SHORTAGE OF THE MEDICATION IN THE HOSPITAL. [facility]
[2020-05-11] MEDS ORDERED: SODIUM BICARB 50MEQ 50ML VIAL IV SCH (10:27)
[2020-05-11] MEDS ORDERED: EPINEPHRINE 1 MG/ML AMPULE ONE (10:29)
[2020-05-11] MEDS ORDERED: SODIUM BICARB 50MEQ 50ML VIAL ONE (10:29)
[2020-05-11] MEDS ORDERED: EPINEPHRINE 10 MG in SODIUM CHLORIDE 0.9% 240 ML IV PRN (10:30)
[2020-05-11] MEDS ORDERED: VASOPRESSIN 20 UNITS in SODIUM CHLORIDE 0.9% 99 ML IV PRN (10:30)
[2020-05-11] MEDS ORDERED: EPINEPHRINE 0.1 MG/ML 10 ML SYG IVP SCH (10:30)
[2020-05-11] MEDS ORDERED: CALCIUM CHLORIDE 100 MG/ML 10 ML SYG IVP SCH (10:45)
--- NOTE | 2020-05-11 11:55 | NUR ---
AROUND 1045 UPON REASSESSMENT, NO BP WAS DISPLAYED. HR IN 130S-140S, PULSE WEAK, THREADY. O2 IN 60S ON 100% VENT. MD CALLED AND NOTIFIED. NEW ORDERS WERE GIVEN AND IMPLEMENTED. FAMILY CALLED AND UPDATED. DECISION WAS MADE PTO WITHDRAW THE CARE , PER FAMILY. AT [address]. 1200 NO HEART OR LUNG SOUNDS WERE FOUND, PUPILS DILATED. PT PRONOUNCE . MD NOTIFIED AND AWARE.
--- NOTE | 2020-05-11 12:00 | NUR ---
PRONOUNCEMENT PT IS UNRESPONSIVE, NO HEART TONES, PUPILS FIXED AND NON REACTIVE. LIFE SUPPORT WITHDRAWN, PT PRONOUNCED AT THIS TIME
--- NOTE | 2020-05-11 12:43 | NUR ---
ALL TUBINGS, SANTANA AND CENTRAL LINE WERE REMOVED.
--- NOTE | 2020-05-17 13:34 | NUR ---
Late Entry LTV [id number] Addendum: 05/20/20 at 1342 by THONG DAILEY RTSLT Amended: Links added.
== END 2020-05-11 12:00 | disposition expired | DRG 207 ==
LOC: EDH 10:58 → EDHIP 14:55 → 2BH 05-06 00:59
PROVIDERS: ADMIT Hospitalist; ATTEND Hospitalist
PROC: 5A09357 Assistance with Respiratory Ventilation, Less than 24 Consecutive Hours, Continuous Positive Airway Pressure (ICD-10-PCS; 2020-05-05)
PROC: 5A1955Z Respiratory Ventilation, Greater than 96 Consecutive Hours (ICD-10-PCS; principal; 2020-05-06)
PROC: 0BH17EZ Insertion of Endotracheal Airway into Trachea, Via Natural or Artificial Opening (ICD-10-PCS; 2020-05-06)
PROC: XW13325 Transfusion of Convalescent Plasma (Nonautologous) into Peripheral Vein, Percutaneous Approach, New Technology Group 5 (ICD-10-PCS; 2020-05-07)
DX: U07.1 COVID-19 (principal); J12.89 Other viral pneumonia; R65.21 Severe sepsis with septic shock; J96.01 Acute respiratory failure with hypoxia; N17.0 Acute kidney failure with tubular necrosis; A41.89 Other specified sepsis; E87.2 Acidosis; J44.0 Chronic obstructive pulmonary disease with (acute) lower respiratory infection; E87.0 Hyperosmolality and hypernatremia; E87.1 Hypo-osmolality and hyponatremia; K21.9 Gastro-esophageal reflux disease without esophagitis; E87.6 Hypokalemia; Z66 Do not resuscitate; I12.9 Hypertensive chronic kidney disease with stage 1 through stage 4 chronic kidney disease, or unspecified chronic kidney disease; N18.9 Chronic kidney disease, unspecified; R57.1 Hypovolemic shock; R53.81 Other malaise; B96.89 Other specified bacterial agents as the cause of diseases classified elsewhere; E87.8 Other disorders of electrolyte and fluid balance, not elsewhere classified; E66.9 Obesity, unspecified; Z68.30 Body mass index [BMI] 30.0-30.9, adult
CPT/HCPCS: 31500; 36415; 36430; 36600; 71045; 71275; 80048; 80053; 81003; 82435; 82550; 82728; 82803; 82947; 82948; 83605; 83615; 83880; 84132; 84145; 84295; 84484; 85018; 85025; 85378; 85610; 85730; 86140; 86850; 86900; 86901; 86927; 87040; 87077; 87088; 87186; 87426; 93005; 93306; 94002; 94003; 94660; C9113; G0378; J0171; J0360; J0696; J1100; J1650; J1815; J1940; J2020; J2185; J2250; J2543; J2704; J2920; J2930; J3010; J3490; J7050; J7060; J7070; J7120; Q9967